=== PATIENT | female | born 1990 | race Caucasian/White ===

== ENCOUNTER → 2021-12-11 | Outpatient (CLI) | payer BC ==
[2021-12-11 09:50] LABS: Basophils # (auto) 0.1 10 ^3/uL (0-0.2); Basophils % (auto) 0.9 % (0.0-2.0); Eosinophils # (auto) 0.2 10 ^3/uL (0-0.8); Eosinophils % (auto) 2.1 % (0.0-7.0); Hematocrit 39.5 % (36.0-46.0); Hemoglobin 13.2 g/dL (12.2-16.2); Lymphocytes # (auto) 3.5 10 ^3/uL (0.4-5.4); Lymphocytes % (auto) 46.3 % (10.0-50.0); Mean Corpuscular Hemoglobin 29.7 pg (28.0-32.0); Mean Corpuscular Hgb Conc. 33.3 g/dL (32.0-36.0); Mean Corpuscular Volume 89.1 fL (80.0-100.0); Monocytes # (auto) 0.8 10 ^3/uL (0-1.3); Monocytes % (auto) 10.1 % (0.0-12.0); Neutrophils % (auto) 40.6 % (37.0-80.0); Red Blood Cells 4.43 10^6/uL (4.0-5.20); Red Cell Distribution Width 13.6 % (11.8-14.3); White Blood Cell 7.5 10^3/uL (4.4-10.8)
[2021-12-11 10:36] LABS: Albumin 3.6 g/dL (3.4-5.0); Calcium 8.8 mg/dL (8.5-10.1); Potassium 3.9 mmol/L (3.5-5.1)
[2021-12-11 10:41] LABS: BUN/Creatinine Ratio 18.2; Bilirubin, Total 0.4 mg/dL (0.2-1.0); Total Protein 6.9 g/dL (6.4-8.2)
== END | disposition home or self-care (01) ==
LOC: LAB 09:25
PROVIDERS: ATTEND Nurse Practitioner Family
DX: Z00.00 Encounter for general adult medical examination without abnormal findings (principal); E34.8 Other specified endocrine disorders; G43.109 Migraine with aura, not intractable, without status migrainosus; Z83.42 Family history of familial hypercholesterolemia
CPT/HCPCS: 36415; 80053; 80061; 85025

== ENCOUNTER 2022-12-03 16:45 | Emergency (ER) | payer BC ==
[~2022-12-03] VITALS: Ht 157.5 cm; Wt 75.0 kg
[2022-12-03] MEDS ORDERED: KETOROLAC TROMETH 60MG/2ML VIAL IM ONE (17:15)
[2022-12-03] MEDS ORDERED: HYDR-4902 PO ×3 (18:41→21:06)
[2022-12-03] MEDS ORDERED: IBUP800T26 PO ×3 (18:41→21:06)
[2022-12-03 19:59] VITALS: BP 110/80
== END 2022-12-03 20:02 | disposition home or self-care (01) ==
LOC: ER 16:45
DX: M23.92 Unspecified internal derangement of left knee (principal)
CPT/HCPCS: 73562; 96372; 99283; J1885

== ENCOUNTER 2024-03-28 12:47 | Emergency (ER) | payer BC, OTHER ==
[~2024-03-28] VITALS: Ht 157.5 cm; Wt 69.3 kg
[~2024-03-28 12:47] MED LIST: HYDR-4902 PO; IBUP-1455 PO
[2024-03-28 13:56] LABS: Urine Bacteria FEW /hpf (None Seen); Urine Blood Negative /uL (Negative); Urine Clarity Clear (Clear); Urine Color Light-Yellow (Yellow); Urine Protein, UAD Negative (Negative); Urine Urobilinogen Normal (Negative); Urine WBC <1 /hpf (0 - 5)
[2024-03-28 14:32] LABS: Basophils # (auto) 0.1 10 ^3/uL (0-0.2); Basophils % (auto) 0.6 % (0.0-2.0); Eosinophils # (auto) 0.1 10 ^3/uL (0-0.8); Eosinophils % (auto) 1.2 % (0.0-7.0); Hematocrit 43.4 % (36.0-46.0); Hemoglobin 14.1 g/dL (12.2-16.2); Lymphocytes # (auto) 3.5 10 ^3/uL (0.4-5.4); Lymphocytes % (auto) 31.4 % (10.0-50.0); Mean Corpuscular Hemoglobin 28.7 pg (28.0-32.0); Mean Corpuscular Hgb Conc. 32.5 g/dL (32.0-36.0); Mean Corpuscular Volume 88.3 fL (80.0-100.0); Neutrophils # (auto) 6.4 10 ^3/uL (1.6-8.6); Neutrophils % (auto) 57.8 % (37.0-80.0); Nucleated Red Blood Cells % 0.1 %; Red Blood Cells 4.91 10^6/uL (4.0-5.20); Red Cell Distribution Width 13.9 % (11.8-14.3)
[2024-03-28 14:52] LABS: Alanine Aminotransferase 16 U/L (7-40); Albumin 4.6 g/dL (3.2-4.8); Alkaline Phosphatase 54 U/L (46-116); Anion Gap 7 (5-15); Aspartate Aminotransferase < 8 U/L (13-40); BUN/Creatinine Ratio 19.1 (10.0-20.0); Blood Urea Nitrogen 13 mg/dL (9-23); Calcium 10.5 mg/dL (8.7-10.4); Carbon Dioxide 23 mmol/L (20-30); Chloride 108 mmol/L (98-107); Glucose 94 mg/dL (74-106); Magnesium 1.8 mg/dL (1.6-2.6); Potassium 4.1 mmol/L (3.5-5.1); Sodium 138 mmol/L (136-145)
[2024-03-28 14:53] LABS: Bilirubin, Total 0.9 mg/dL (0.2-1.0); Total Protein 7.4 g/dL (5.7-8.2)
[2024-03-28] MEDS: SODIUM CHLORIDE 0.9% 1,000 ML IV ONE (15:18)
[2024-03-28] MEDS: MECLIZINE HCL 25 MG TAB PO ONE (15:18)
[2024-03-28 15:23] VITALS: BP 107/60; PULSE 55; RESP 18; O2SAT 100
[2024-03-28] MEDS ORDERED: MECL1TAB42 PO (16:28)
[2024-03-28] MEDS ORDERED: ZOFR4T PO (16:28)
== END 2024-03-28 16:40 | disposition home or self-care (01) ==
LOC: EEVIPCON 12:47 → ER 12:47
DX: R42 Dizziness and giddiness (principal); J45.909 Unspecified asthma, uncomplicated; Z98.890 Other specified postprocedural states; Z90.89 Acquired absence of other organs; Z90.49 Acquired absence of other specified parts of digestive tract
CPT/HCPCS: 36415; 70450; 71045; 80053; 81001; 82962; 83735; 83880; 84484; 85025; 93005; 96360; 99285; J7030; J8597

== ENCOUNTER 2024-09-01 14:21 | Emergency (ER) | payer BC, OTHER ==
[~2024-09-01] VITALS: Ht 154.9 cm; Wt 70.0 kg
[~2024-09-01 14:21] MED LIST changes: +MECL1TAB42 PO; +ZOFR4T PO
[2024-09-01 15:03] LABS: Basophils # (auto) 0.1 10 ^3/uL (0-0.2); Basophils % (auto) 0.8 % (0.0-2.0); Eosinophils # (auto) 0.2 10 ^3/uL (0-0.8); Eosinophils % (auto) 2.3 % (0.0-7.0); Hematocrit 41.3 % (36.0-46.0); Hemoglobin 13.5 g/dL (12.2-16.2); Lymphocytes # (auto) 2.9 10 ^3/uL (0.4-5.4); Lymphocytes % (auto) 30.6 % (10.0-50.0); Mean Corpuscular Hemoglobin 29.5 pg (28.0-32.0); Mean Corpuscular Hgb Conc. 32.7 g/dL (32.0-36.0); Mean Corpuscular Volume 90.2 fL (80.0-100.0); Monocytes # (auto) 0.8 10 ^3/uL (0-1.3); Monocytes % (auto) 8.5 % (0.0-12.0); Neutrophils # (auto) 5.5 10 ^3/uL (1.6-8.6); Neutrophils % (auto) 57.8 % (37.0-80.0); Nucleated Red Blood Cells % 0.1 %; Platelet Count (auto) 327 10^3/uL (140-450); Red Blood Cells 4.58 10^6/uL (4.0-5.20); Red Cell Distribution Width 13.9 % (11.8-14.3); White Blood Cell 9.5 10^3/uL (4.4-10.8)
[2024-09-01 15:19] LABS: Alanine Aminotransferase 13 U/L (7-40); Alkaline Phosphatase 64 U/L (46-116); Anion Gap 9 (5-15); Aspartate Aminotransferase < 8 U/L (13-40); Bilirubin, Total 0.4 mg/dL (0.2-1.0); Blood Urea Nitrogen 9 mg/dL (9-23); Calcium 10.3 mg/dL (8.7-10.4); Carbon Dioxide 27 mmol/L (20-31); Chloride 107 mmol/L (98-107); Glucose 105 mg/dL (74-106); Lipase 50 U/L (12-53); Potassium 4.4 mmol/L (3.5-5.1); Sodium 143 mmol/L (136-145); Total Protein 7.8 g/dL (5.7-8.2)
[2024-09-01 15:25] VITALS: BP 134/62; RESP 20; TEMP 98.1; O2SAT 100
--- NOTE | 2024-09-01 15:40 | ED.PDOC ---
GI ASSESSMENT HPI Comments A 34 YEAR OLD FEMALE PRESENTS TO THE ED WITH COMPLAINT OF EPIGASTRIC PAIN. PATIENT STATES SHE HAS BEEN EXPERIENCING EPIGASTRIC PAIN THAT RADIATES TO HER MIDDLE BACK FOR THE PAST 2 HOURS TODAY. PER PT, SHE HAS HX OF ANXIETY AND EPIGASTRIC PAIN AGGRAVATED HER ANXIETY. NOW, SHE C/O CHEST TIGHTNESS AND SOB SENSATION. PATIENT DENIES FEVER, CHILLS, SHORTNESS OF BREATH, CHEST PAIN, VOMITING, HEADACHE, OR OTHER COMPLAINTS. NO OTHER SYMPTOMS OR MODIFYING FACTORS AT THIS TIME. PATIENT IS ALERT, ORIENTED X 4, AND HAS STEADY GAIT. Chief Complaint: Abdominal Pain Time Seen by MD: 14:41 Primary Care Provider: SOFÍA Reviewed Notes: Nurses Notes, Medications, Allergies Allergies: Coded Allergies: NO KNOWN ALLERGIES (Unverified , 12/03/22) Home Meds Active Scripts Pantoprazole Sodium Sesquihydr (Protonix) 40 Mg Tab, 40 MG PO DAILY, #30 TAB Prov:MARIZOL HERNANDES 09/01/24 Ondansetron Odt 4MG Tab (ZOFRAN PO) 4 Mg Tb, 4 MG PO Q8HPRN PRN for 3 Days, #9 TAB ODT TAB-DISSOLVE IN MOUTH, THEN SWALLOW Prov:BALBIR GALDAMEZ DO 03/28/24 Meclizine HCl (Meclizine 25) 25 Mg Tab, 25 MG PO Q8HPRN PRN for 3 Days, #9 TAB Prov:BALBIR GALDAMEZ DO 03/28/24 Hydrocodone-Acetaminophen (Hydrocodone Bitartrate/AC 5-325 mg) 1 Tab Tab, 1 TAB PO Q6HP PRN, #20 TAB Prov:OLGA LIDIA SINGH PAC 12/03/22 Ibuprofen Micronized (Ibuprofen) 800 Mg Tab, 800 MG PO Q8HP PRN, #30 TAB Prov:OLGA LIDIA SINGH PAC 12/03/22 Information Source: Patient Mode of Arrival: Ambulatory Timing: Hours Duration: Since onset, Hours Prehospital treatment: None Quality: Aching, Cramping, Colicky Vomitus: None Stool: Normal Severity: Moderate Recent: None Recent Hx of: None Pain Location: Epigastric Modifying Factors: Nothing Associated sign and symptoms: Nausea, Abdominal Pain (EPIGASTRIC PAIN) Past Medical History PAST MEDICAL HISTORY: Anxiety Surgical History: Denies all surgeries FIELD MECHANIC History: No Pertinent FIELD MECHANIC History Family History Family History: Reviewed,noncontributory to illness, No family hx of Cancer, No family hx of DM, No family hx of Heart chris, No family hx of HTN, No family hx ofKidney chris, No family hx of Liver chris, No family hx of Lung chris, No family hx of Stroke Social History Smoker: Non-Smoker Alcohol: Denies ETOH Use Drugs: Denies Drug Use Lives In: Home Constitutional: reports: others (ANXIOUS ); denies: chills, diaphoresis, fatigue, fever, malaise, sweats, weakness EENTM: denies: blurred vision, double vision, ear bleeding, ear discharge, ear drainage, ear pain, ear ringing, eye pain, eye redness, hearing loss, mouth pain, mouth swelling, nasal discharge, nose bleeding, nose congestion, nose pain, photophobia, tearing, throat pain, throat swelling, voice changes, others Respiratory: denies: cough, hemoptysis, orthopnea, SOB at rest, shortness of breath, SOB with excertion, stridor, wheezing, others Cardiovascular: denies: chest pain, dizzy spells, diaphoresis, Dyspnea on exertion, edema, irregular heart beat, left arm pain, lightheadedness, palpitations, PND, syncope, others Gastrointestinal: reports: abdominal pain (EPIGASTRIC PAIN), nausea; denies: abdomen distended, blood streaked bowels, constipated, diarrhea, dysphagia, difficulty swallowing, hematemesis, melena, poor appetite, poor fluid intake, rectal bleeding, rectal pain, vomiting, others Genitourinary: denies: abnormal vagina bleeding, burning, dyspareunia, dysuria, flank pain, frequency, hematuria, incontinence, pain, , vagina discharge, urgency, others Neurological: denies: dizziness, fainting, headache, left sided numbness, left sided weakness, numbness, paresthesia, pre-existing deficit, right sided numbness, right sided weakness, seizure, speech problems, tingling, tremors, weakness, others Musculoskeletal: reports: back pain (MIDDLE BACK PAIN); denies: gout, joint pain, joint swelling, muscle pain, muscle stiffness, neck pain, others Integumetry: denies: bruises, change in color, change in hair/nails, dryness, laceration, lesions, lumps, rash, wounds, others Allergic/Immunocompromised: denies: Difficulty Healing, Frequent Infections, Hives, Itching, others Hematologic/Lymphatic: denies: anemia, blood clots, easy bleeding, easy bruising, swollen glands, others Endocrine: denies: excessive hunger, excessive sweating, excessive thirst, excessive urination, flushing, intolerance to cold, intolerance to heat, unexplained weight gain, unexplained weight loss, others Psychiatric: reports: anxiety; denies: bipolar disorder, depression, hopeless, panic disorder, schizophrenia, sleepless, suicidal, others All Other Systems: Reviewed and Negative Physical Exam General Appearance: Mild Distress, Normal, Other (ANXIOUS ) HEENT: Normal ENT Inspection, PERRL/EOMI, Pharynx Normal, TMs Normal Neck: Full Range of Motion, Non-Tender, Normal, Normal Inspection Respiratory: Chest Non-Tender, Lungs Clear, No Accessory Muscle Use, No Respiratory Distress, Normal Breath Sounds Cardiovascular: No Edema, No JVD, No Murmur, No Gallop, Normal Peripheral Pulses, Regular Rate/Rhythm Breast Exam: Deferred Gastrointestinal: Epigastric, No Organomegaly, No Pulsatile Mass, Normal Bowel Sounds, Soft, Tenderness (EPIGASTRIC, NO GUARDING AND REBOUND TENDERNESS. ) Genitalia: Deferred Pelvic: Deferred Rectal: Deferred Extremities: No calf tenderness, Normal capillary refill, Normal inspection, Normal range of motion, Non-tender, No pedal edema Musculoskeletal : Apperance: Normal Neurologic: Alert, patient intake representative II-XII nml as Tested, No Motor Deficits, Normal Affect, Normal Mood, No Sensory Deficits Cerebellar Function: Normal Reflexes: Normal Skin: Dry, Normal Color, Warm Peripheral Pulses: 2+ carotid (R), 2+ carotid (L) Lymphatic: No Adenopathy Was a procedure done? Was a procedure done?: No GI differential Dx Differential Diagnosis: Cholecystitis, Constipation, Gastritis/PUD, Inflammatory BD, Pancreatitis, UTI X-Ray, Labs, Meds, VS Vital Signs Date Time Temp Pulse Resp B/P (MAP) Pulse Ox O2 Delivery O2 Flow Rate FiO2 09/01/24 16:40 52 09/01/24 15:25 86 20 100 Room Air 09/01/24 15:25 98.1 86 20 134/62 (86) 100 98.1 09/01/24 14:25 98.1 86 20 134/62 (86) 100 Lab Test 09/01/24 14:39 Range/Units White Blood Count 9.5 4.4-10.8 10^3/uL Red Blood Count 4.58 4.0-5.20 10^6/uL Hemoglobin 13.5 12.2-16.2 g/dL Hematocrit 41.3 36.0-46.0 % Mean Corpuscular Volume 90.2 80.0-100.0 fL Mean Corpuscular Hemoglobin 29.5 28.0-32.0 pg Mean Corpuscular Hemoglobin Concent 32.7 32.0-36.0 g/dL Red Cell Distribution Width 13.9 11.8-14.3 % Platelet Count 327 140-450 10^3/uL Mean Platelet Volume 7.9 6.9-10.8 fL Neutrophils (%) (Auto) 57.8 37.0-80.0 % Lymphocytes (%) (Auto) 30.6 10.0-50.0 % Monocytes (%) (Auto) 8.5 0.0-12.0 % Eosinophils (%) (Auto) 2.3 0.0-7.0 % Basophils (%) (Auto) 0.8 0.0-2.0 % Neutrophils # (Auto) 5.5 1.6-8.6 10 ^3/uL Lymphocytes # (Auto) 2.9 0.4-5.4 10 ^3/uL Monocytes # (Auto) 0.8 0-1.3 10 ^3/uL Eosinophils # (Auto) 0.2 0-0.8 10 ^3/uL Basophils # (Auto) 0.1 0-0.2 10 ^3/uL Nucleated Red Blood Cells 0.1 % Sodium Level 143 136-145 mmol/L Potassium Level 4.4 3.5-5.1 mmol/L Chloride Level 107 98-107 mmol/L Carbon Dioxide Level 27 20-31 mmol/L Anion Gap 9 5-15 Blood Urea Nitrogen 9 9-23 mg/dL Creatinine 0.82 0.550-1.02 mg/dL Glomerular Filtration Rate Calc 96 >90 mL/min BUN/Creatinine Ratio 11.0 10.0-20.0 Serum Glucose 105 74-106 mg/dL Calcium Level 10.3 8.7-10.4 mg/dL Total Bilirubin 0.4 0.2-1.0 mg/dL Aspartate Amino Transferase (AST) < 8 L 13-40 U/L Alanine Aminotransferase (ALT) 13 7-40 U/L Alkaline Phosphatase 64 46-116 U/L Troponin I High Sensitivity < 3 L </=34 ng/L Total Protein 7.8 5.7-8.2 g/dL Albumin 5.0 H 3.2-4.8 g/dL Lipase 50 12-53 U/L ABDOMINAL ULTRASOUND CLINICAL HISTORY: EPIGASTRIC PAIN TECHNIQUE: Multiple grayscale and color Doppler ultrasound images were obtained of the abdomen. WID: COMPARISON: None FINDINGS: Liver and Biliary System: Homogeneous echotexture, normal size measuring 14.5 cm. No focal hepatic observations. No intrahepatic bile duct dilatation. The common duct measures 0.3 cm at the jose hepatis. The gallbladder is normal caliber without cholelithiasis or wall thickening. Pancreas: Visualized portions are unremarkable. Kidneys: The right kidney is 9.9 cm . No hydronephrosis, increased echogenicity, shadowing stone, or focal lesion. IMPRESSION: Unremarkable right upper quadrant ultrasound ATED BY: KATYA HOLT MD DICTATED DATE/TIME: 09/01/241734 SIGNED BY: KATYA HOLT MD SIGNED DATE/TIME: 09/01/241734 CC: X-Ray, Labs, Meds, VS Comment LABS ORDERED: CBC, CMP, LIPASE, UA REVIEWED AND INTERPRETED RESULTS: NORMAL TREATMENT: GI COCKTAIL P.O., PEPCID 40MG PO PATIENT REPORTED FEELING MUCH BETTER AFTER RECEIVING TREATMENT. PATIENT NOTED ALL OF HER SYMPTOMS SUBSIDED AND PATIENT IS NOW CALM AND RELAXED. Images Reviewed?: Images reviewed and evaluated by me Time of 1ST Reevaluation: 18:20 Reevaluation 1ST: Improved Patient Education/Counseling: Diagnosis, Treatment, Need For Follow Up Family Education/Counseling: Diagnosis, Treatment, Need For Follow Up Medical Screening: No EMC Exist At This Time Departure 1 Departure Time of Disposition: 18:30 Impression: Primary Impression: GERD (gastroesophageal reflux disease) Qualified Codes: K21.9 - Gastro-esophageal reflux disease without esophagitis Additional Impression: History of anxiety Disposition: 01 HOME / SELF CARE / HOMELESS Condition: Stable Additional Instructions: FOLLOW-UP WITH PCP IN 1 TO 2 DAYS. TAKE MEDICATIONS PRESCRIBED. RETURN TO ED FOR ANY NEW OR WORSENING SYMPTOMS. e-Prescriptions Pantoprazole Sodium Sesquihydr (Protonix) 40 Mg Tab 40 MG PO DAILY, #30 TAB Prov: MARIZOL HERNANDES 09/01/24 Discharged With: Self Critical Care Note Critical Care Time?: No Stability Stability form required: No I personally scribed for MARIZOL HERNANDES ([email or web address]) on 09/01/24 at 15:40. Electronically submitted by Emilio Loaiza ([employer]). I personally scribed for MARIZOL HERNANDES ([email or web address]) on 09/01/24 at 17:22. Electronically submitted by Emilio Loaiza ([employer]). MARIZOL HERNANDES Sep 01, 2024 15:40
[2024-09-01] MEDS ORDERED: LIDOCAINE 1% HCL (LOCAL ANESTH.) INJ 20ML MDV IJ ONE (16:30)
[2024-09-01] MEDS: FAMOTIDINE 20 MG TAB PO ONE (16:38)
[2024-09-01] MEDS: DONNATAL 5ml ORAL Elix (BELLADONNA ALK-PHENOBARB) PO ONE (16:38)
[2024-09-01] MEDS: MAALOX PLUS or MAALOX 30 ML PO ONE (16:38)
[2024-09-01] MEDS: LIDOCAINE VISCOUS 2% 15ML UD MT ONE (16:38)
[2024-09-01 16:40] VITALS: PULSE 52
[2024-09-01] MEDS ORDERED: PANT40TA2 PO (17:22)
--- NOTE | 2024-09-01 17:38 | DVH ---
ABDOMINAL ULTRASOUND CLINICAL HISTORY: EPIGASTRIC PAIN TECHNIQUE: Multiple grayscale and color Doppler ultrasound images were obtained of the abdomen. WID: COMPARISON: None FINDINGS: Liver and Biliary System: Homogeneous echotexture, normal size measuring 14.5 cm. No focal hepatic observations. No intrahepatic bile duct dilatation. The common duct measures 0.3 cm at the jose h epatis. The gallbladder is normal caliber without cholelithiasis or wall thickening. Pancreas: Visualized portions are unremarkable. Kidneys: The right kidney is 9.9 cm . No hydronephrosis, increased echogenicity, shadowing stone, o r focal lesion. IMPRESSION: Unremarkable right upper quadrant ultrasound
--- NOTE | 2024-09-04 10:26 | ECG ---
[facility] Test Date: 2024-09-01 Test Time: 16:40:40 Pat Name: YISSEL DELANEY Department: ER Room: Gender: F Cigar Patcher: ANNEMARIE : 1990 Requested By: BALBIR GALDAMEZ Order Number: [id number] Reading MD: Kurt Hurd Measurements Intervals [place] Rate: 52 P: 9 VT: 179 QRS: 84 QRSD: 98 T: 60 QT: 445 QTc: 414 Interpretive Statements Sinus rhythm Baseline wander in lead(s) V3 Electronically Signed On 09-05-2024 8:18:10 PST by Kurt Hurd Please click the below link to view image of tracing.
--- NOTE | 2024-09-04 10:26 | ECG ---
[facility] Test Date: 2024-09-01 Test Time: 14:27:43 Pat Name: YISSEL DELANEY Department: ER Room: Gender: F Stonemason Helper: SAM : 1990 Requested By: BALBIR GALDAMEZ Order Number: [id number] Reading MD: Kurt Hurd Measurements Intervals [place] Rate: 65 P: 0 [place]: 0 QRS: 75 QRSD: 97 T: 33 QT: 450 QTc: 468 Interpretive Statements Atrial fibrillation Borderline T abnormalities, anterior leads Electronically Signed On 09-05-2024 8:17:57 PST by Kurt Hurd Please click the below link to view image of tracing.
== END 2024-09-01 17:28 | disposition home or self-care (01) ==
LOC: EEVIPCON 14:21 → ER 14:21
DX: K21.9 Gastro-esophageal reflux disease without esophagitis (principal); F41.9 Anxiety disorder, unspecified; Z79.899 Other long term (current) drug therapy
CPT/HCPCS: 36415; 76705; 80053; 83690; 84484; 85025; 93005; 99284; J2003

== ENCOUNTER → 2024-12-19 | Outpatient (CLI) | payer BC, OTHER ==
[~2024-12-19] MED LIST changes: +PANT40TA2 PO
== END | disposition home or self-care (01) ==
LOC: LAB 11:13
PROVIDERS: ATTEND Anesthesiology
DX: N30.01 Acute cystitis with hematuria (principal)
CPT/HCPCS: 87086